=== PATIENT | female | born 1980 | race American Indian/Alaskan Native ===

== ENCOUNTER 2020-12-23 21:42 | Outpatient (CLI) | payer MEDICAID ==
[2020-12-23 22:06] VITALS: BP 134/88
[2020-12-23] MEDS ORDERED: LACTATED RINGERS 1,000 ML IV ONE (22:29)
== END 2020-12-23 23:29 | disposition home or self-care (01) ==
LOC: TRG 21:42 → APU 21:54 → TRG 23:29
PROVIDERS: ATTEND Obstetrics & Gynecology
DX: O62.9 Abnormality of forces of labor, unspecified (principal); O24.419 Gestational diabetes mellitus in pregnancy, unspecified control; O09.523 Supervision of elderly multigravida, third trimester; Z3A.37 37 weeks gestation of pregnancy
CPT/HCPCS: 59025; 82962; 96360; J7120

== ENCOUNTER 2020-12-30 17:12 | Inpatient (IN) | payer MEDICAID ==
[2020-12-30 19:38] LABS: Hematocrit 35.9 % (30.3-42.9); Hemoglobin 12.2 gm/dl (10.1-14.3); Mean Corpuscular HGB Conc 34 % (30-34); Mean Corpuscular Volume 80 fl (79-97); Platelet Count 245 K/mm3 (140-440); Red Blood Count 4.48 M/mm3 (3.65-5.03)
[2020-12-30 20:07] LABS: Alanine Aminotransferase 15 units/L (7-56); Albumin 3.5 g/dL (3.9-5); Blood Urea Nitrogen 5 mg/dL (7-17); Calcium 9.4 mg/dL (8.4-10.2); Hemolysis Index 8
[2020-12-30 20:19] LABS: BUN/Creatinine Ratio 10
[2020-12-30] MEDS ORDERED: LACTATED RINGERS 1,000 ML IV SCH ×2 (21:00→23:15)
[2020-12-30] MEDS ORDERED: OXYTOCIN DRIP 30 UNITS/500 ML BAG IV SCH ×2 (21:00→23:45)
[2020-12-30] MEDS ORDERED: TERBUTALINE 1 MG/1 ML INJ SUB-Q PRN (23:03)
[2020-12-30] MEDS ORDERED: OXYTOCIN 10 UNIT/1 ML INJ IM PRN (23:03)
[2020-12-30] MEDS ORDERED: CARBOPROST TROMETHAMINE 250 MCG/1 ML INJ IM PRN (23:03)
[2020-12-30] MEDS ORDERED: LOPERAMIDE 2 MG CAP PO PRN (23:03)
[2020-12-30] MEDS ORDERED: miSOPROStol 200 MCG TAB PR PRN (23:03)
[2020-12-30] MEDS ORDERED: BUTORPHANOL 2 MG/1 ML INJ IV PRN (23:03)
[2020-12-30] MEDS ORDERED: MINERAL OIL 30 ML ORAL LIQD PO PRN (23:03)
[2020-12-30] MEDS ORDERED: ePHEDrine SULFATE 50 MG/1 ML INJ IV PRN (23:03)
[2020-12-30] MEDS ORDERED: METHYLERGONOVINE MALEATE 0.2 MG/ML VIAL IM PRN (23:03)
--- NOTE | 2020-12-30 23:40 | History and Physical Report ---
History of Present Illness Date of examination: 12/30/20 Date of admission: 12/30/2020 Chief complaint: I'm here for my induction History of present illness: Patient is a 40-year-old 8 para 4-0-3-3 who presents for induction of labor secondary to advanced maternal age, poorly controlled gestational diabetes and polyhydramnios. Her EDC is 01/07/2021 which makes her 38 weeks and 6 days today. Her course was complicated by late presentation to care, advanced maternal age, new diagnosis of HSV, and gestational diabetes. She is GBS negative. Her first delivery was via section in 1997 for a stillborn. She has had 3 successful VBACs since then. Past History Past Medical History: diabetes Past Surgical History: section [employer] History: herpes Family/Genetic History: none Social history: - Obstetrical History Expected Date of Delivery: 01/07/21 Actual Gestation: 38 Week(s) 6 Day(s) : 8 Para: 4 Number of Living Children: 3 Medications and Allergies Allergies Allergy/AdvReac Type Severity Reaction Status Date / Time No Known Allergies Allergy Verified 12/23/20 22:31 Home Medications Medication Instructions Recorded Confirmed Last Taken Type One Daily Tablet 1 tab PO DAILY 12/30/20 12/30/20 12/30/20 10:00 History metFORMIN 500 mg PO DAILY 12/30/20 12/30/20 12/29/20 21:00 History Active Meds: Active Medications Butorphanol Tartrate (Butorphanol 2 Mg/1 Ml Inj) 2 mg IV Q2H PRN PRN Reason: Pain , Severe (7-10) Carboprost Tromethamine (Carboprost Tromethamine 250 Mcg/1 Ml Inj) 250 mcg IM ONCE PRN PRN Reason: Uterine Bleeding Ephedrine Sulfate (Ephedrine Sulfate 50 Mg/1 Ml Inj) 10 mg IV Q2M PRN PRN Reason: Hypotension Oxytocin/Sodium Chloride (Pitocin/Ns 30 Unit/500ml) 30 units in 500 mls @ 2 mls/hr IV TITR JOSE FRANCISCO; Protocol Last Admin: 12/30/20 23:15 Dose: 2 ml/hr, 2 mls/hr Documented by: Lactated Ringer's (Lactated Ringers) 1,000 mls @ 125 mls/hr IV DIRECT JOSE FRANCISCO Last Admin: 12/30/20 23:15 Dose: 125 mls/hr Documented by: Oxytocin/Sodium Chloride (Pitocin/Ns 30 Unit/500ml) 30 units in 500 mls @ 2 mls/hr IV TITR JOSE FRANCISCO; Protocol Lactated Ringer's (Lactated Ringers) 1,000 mls @ 125 mls/hr IV DIRECT JOSE FRANCISCO Lidocaine (Lidocaine (2%) 20 Mg/1 Ml Vial 20 Ml Mdv) 20 ml INFILTRATI ONCE ONE Stop: 12/30/20 23:04 Loperamide HCl (Loperamide 2 Mg Cap) 2 mg PO ONCE PRN PRN Reason: give with Hemabate Methylergonovine Maleate (Methylergonovine Maleate 0.2 Mg/Ml Vial) 0.2 mg IM ONCE PRN PRN Reason: Uterine Bleeding Mineral Oil (Mineral Oil 30 Ml Oral Liqd) 30 ml PO QHS PRN PRN Reason: Constipation Misoprostol (Misoprostol 200 Mcg Tab) 800 mcg AK ONCE PRN PRN Reason: Uterine Bleeding Oxytocin (Oxytocin 10 Unit/1 Ml Inj) 10 unit IM ONCE PRN PRN Reason: Uterine Bleeding Terbutaline Sulfate (Terbutaline 1 Mg/1 Ml Inj) 0.25 mg SUB-Q ONCE PRN PRN Reason: Hyperstimulation/Hypertonicity Review of Systems All systems: negative Eyes: deferred Gastrointestinal: abdominal pain Genitourinary: pelvic pain - Vital Signs Vital signs: Vital Signs Pulse BP 91 H 111/63 12/30/20 18:10 12/30/20 18:10 Temp Pulse Resp BP Pulse Ox 98.9 F 68 16 125/72 99 12/30/20 19:26 12/30/20 23:27 12/30/20 19:26 12/30/20 23:27 12/30/20 23:26 - Physical Exam Breasts: Positive: deferred Cardiovascular: Regular rate, Normal S1, Normal S2 Lungs: Positive: Clear to auscultation, Normal air movement Abdomen: Positive: normal appearance, soft, normal bowel sounds. Negative: distention, tenderness Genitourinary (Female): Positive: normal external genitalia, normal perenium Vulva: both: normal Vagina: Positive: normal moisture. Negative: discharge Cervix: Negative: lesion, discharge Uterus: Positive: normal size, normal contour Adnexa: both: normal Anus/Rectum: Positive: normal perianal skin, heme negative. Negative: rectal mass, hemorrhoids Extremities: Deep Tendon Reflex Grade: Normal +2 - Obstetrical FHR: auscultation normal Cervical Dilatation: 4.5 Cervical Effacement Percentage: 80 station: -2 Uterine Contraction Frequency (min): 5 Uterine Contraction Pattern: Irregular Uterine Tone Measurement Phase: Contraction Uterine Contraction Intensity: Moderate Results Result Diagrams: 12/30/20 19:00 12/30/20 19:00 Abnormal lab results 12/30/20 12/30/20 Range/Units 19:00 19:00 MCH 27 L (28-32) pg Sodium 134 L (137-145) mmol/L Carbon Dioxide 20 L (22-30) mmol/L BUN 5 L (7-17) mg/dL Creatinine 0.5 L (0.6-1.2) mg/dL Glucose 136 H (65-100) mg/dL Alkaline Phosphatase 165 H (35-129) units/L Albumin 3.5 L (3.9-5) g/dL All other labs normal. Assessment and Plan IUP at 38 and 6 for induction of labor per [facility] who recommends delivery by 39 weeks. In addition, patient has not been checking her sugars regularly secondary to inability to procure the proper testing supplies. We will proceed with augmentation of labor and anticipate .
[2020-12-30] MEDS ORDERED: LIDOCAINE (2%) 20 MG/1 ML VIAL 20 ML MDV INFILTRATI ONE (23:53)
[2020-12-31 00:46] LABS: Hemoglobin 11.7 gm/dl (10.1-14.3); Mean Corpuscular HGB Conc 34 % (30-34); Mean Corpuscular Volume 81 fl (79-97); Platelet Count 237 K/mm3 (140-440); Red Blood Count 4.32 M/mm3 (3.65-5.03); Red Cell Distribution Width 14.9 % (13.2-15.2)
--- NOTE | 2020-12-31 01:25 | Procedure Note ---
OB Delivery Note - Delivery Date of Delivery: 12/31/20 Surgeon: CAROLINE CARLSON Estimated blood loss: 200cc - Vaginal Delivery presentation: vertex Delivery position: OA Intrapartum events: none Delivery augmentation: rupture of membranes, pitocin Delivery monitor: external FHT, external uterine Route of delivery: Delivery placenta: spontaneous Delivery cord: nuchal cord, 3 umbilical vessels Episiotomy: none Delivery laceration: none Anesthesia: none Delivery comments: Viable male delivered over intact perineum without episiotomy or lace ration. Weight 8 pounds 11 ounces, Apgars 8 and 9. Loose nuchal cord easily reduced on perineum. Infant had spontaneous cry and was placed on maternal abdomen. Cord clamped and cut when done pulsating. Delivered spontaneously and intact with three-vessel cord. No lacerations. Excellent hemostasis. Patient tolerated procedure well. - Infant A at 1 minute: 8 at 5 minutes: 9 Infant Gender: Male
[2020-12-31] MEDS ORDERED: ONDANSETRON 4 MG/2 ML INJ IV PRN (04:21)
[2020-12-31] MEDS ORDERED: MAGNESIUM HYDROXIDE (MOM) ORAL LIQD UDC PO PRN (04:21)
[2020-12-31] MEDS ORDERED: HYDROcodone/ACETAMINOPHEN 5-325 MG TAB PO PRN (04:21)
[2020-12-31] MEDS ORDERED: diphenhydrAMINE 25 MG CAP PO PRN (04:21)
[2020-12-31] MEDS ORDERED: LANOLIN/ZINC/DIMETHICONE (LANSINOH) 7 GM TP PRN (04:21)
[2020-12-31] MEDS ORDERED: PROMETHAZINE 25 MG RECT SUPP PR PRN (04:21)
[2020-12-31] MEDS ORDERED: PROMETHAZINE 25 MG TAB PO PRN (04:21)
[2020-12-31] MEDS ORDERED: WITCH HAZEL/ GLYCERIN PAD TP PRN (04:21)
[2020-12-31] MEDS: IBUPROFEN 600 MG TAB PO SCH ×3 (06:00→17:46)
[2020-12-31] MEDS: PRENATAL VIT27-FE FUMARATE-FOLIC ACID VIT TAB PO SCH (09:13)
[2020-12-31] MEDS: DOCUSATE SODIUM 100 MG CAP PO SCH ×2 (09:13→22:28)
[2020-12-31 13:42] LABS: Hematocrit 33.6 % (30.3-42.9); Hemoglobin 11.1 gm/dl (10.1-14.3)
--- NOTE | 2020-12-31 22:55 | Progress Note ---
Assessment and Plan Pt is PPD 1 s/p . Doing well. Plan for discharge in the am. Subjective - Subjective Date of service: 12/31/20 Interval history: Patient is a 40-year-old 8 para 4-0-3-3 who presents for induction of labor secondary to advanced maternal age, poorly controlled gestational diabetes and polyhydramnios. Her EDC is 01/07/2021 which makes her 38 weeks and 6 days today. Her course was complicated by late presentation to [facility], advan tere maternal age, new diagnosis of HSV, and gestational diabetes. She is GBS negative. Her first delivery was via section in 1997 for a stillborn. She has had 3 successful VBACs since then. Patient reports: appetite normal, voiding normally, pain well controlled, ambulating normally : doing well Objective - Vital Signs Latest vital signs: Vital Signs Temp Pulse Resp BP BP Pulse Ox Pulse Ox 12/31/20 17:30 98.2 F 82 18 117/53 99 12/31/20 12:21 97.6 F 88 18 108/67 95 12/31/20 08:43 97.9 F 93 H 18 112/79 95 12/31/20 08:00 100 12/31/20 06:58 18 12/31/20 06:00 18 12/31/20 04:45 98.8 F 12/31/20 04:24 100 12/31/20 04:15 74 18 116/70 100 12/31/20 02:41 85 98 12/31/20 02:36 70 98 12/31/20 02:33 73 118/58 12/31/20 02:31 67 97 12/31/20 02:26 68 98 12/31/20 02:21 66 98 12/31/20 02:18 74 139/77 12/31/20 02:16 86 100 12/31/20 02:11 67 98 12/31/20 02:06 81 98 12/31/20 02:03 68 131/81 12/31/20 02:01 77 98 12/31/20 01:56 75 99 12/31/20 01:51 63 97 12/31/20 01:48 71 128/83 12/31/20 01:46 88 98 12/31/20 01:41 83 97 12/31/20 01:36 84 98 12/31/20 01:33 71 122/67 12/31/20 01:31 80 99 12/31/20 01:26 81 98 12/31/20 01:21 75 98 12/31/20 01:18 86 128/69 12/31/20 01:16 86 99 12/31/20 01:11 85 98 12/31/20 01:06 93 H 97 12/31/20 01:01 76 98 12/31/20 00:56 95 H 99 12/31/20 00:51 105 H 100 12/31/20 00:48 101 H 90 12/31/20 00:46 76 100 12/31/20 00:41 94 H 98 12/31/20 00:36 109 H 98 12/31/20 00:31 95 H 99 12/31/20 00:26 100 H 100 12/31/20 00:21 79 98 12/31/20 00:16 89 99 12/31/20 00:11 96 H 99 12/31/20 00:06 85 100 12/31/20 00:01 83 98 12/30/20 23:56 91 H 98 12/30/20 23:55 98.2 F 16 12/30/20 23:51 75 100 12/30/20 23:46 84 98 12/30/20 23:41 90 99 12/30/20 23:36 62 99 12/30/20 23:31 88 97 12/30/20 23:27 68 125/72 12/30/20 23:26 63 99 12/30/20 23:21 74 98 12/30/20 23:16 87 114/72 99 12/30/20 23:11 91 H 99 12/30/20 23:06 72 99 12/30/20 23:01 81 99 12/30/20 22:56 102 H 100 Intake and Output 12/31/20 12/31/20 12/31/20 06:59 14:59 22:59 Intake Total 122.3 240 Output Total 900 700 500 Balance -017.7 700 260 Intake: IV 2.3 PITOCin/NS 30 UNIT/500ML 2.3 30 units In 500 ml @ 2 mls/hr IV TITR JOSE FRANCISCO Rx#: [id number] Oral 120 240 Output: Urine 900 700 500 Void 900 700 500 Other: Total, Intake Amount 120 240 Total, Output Amount 900 700 500 # Voids Void 1 Estimated Blood Loss 200 - Exam Breasts: Present: deferred Cardiovascular: Present: Regular rate, Normal S1, Normal S2 Lungs: Present: Clear to auscultation, Normal air movement Abdomen: Present: normal appearance, soft, normal bowel sounds Uterus: Present: normal, firm Extremities: Present: normal - Labs Labs: Abnormal lab results 12/31/20 Range/Units 00:22 MCH 27 L (28-32) pg
--- NOTE | 2020-12-31 22:58 | Discharge Summary ---
Providers - Providers Date of Admission: 12/31/20 01:22 Date of discharge: 01/01/21 Attending physician: CAROLINE CARLSON Primary care physician: CAROLINE CARLSON Hospitalization Reason for admission: induction of labor Delivery: Episiotomy: none Laceration: none Discharge diagnosis: baby: male Hospital course: unremarkable Condition at discharge: Good Disposition: DC-01 TO HOME OR SELFCARE Plan - Discharge Medications Prescriptions: Ibuprofen [Motrin] 800 mg PO Q8HR PRN #40 tablet PRN Reason: Pain, Mild (1-3) - Provider Discharge Summary Activity: routine, no sex for 6 weeks, no heavy lifting 4 weeks, no strenuous exercise Diet: routine Instructions: routine Additional instructions: [] Smoking cessation referral if applicable(refer to patient education folder for contact #) [] Refer to [facility] Booklet Call your doctor immediately for: * Fever > 100.5 * Heavy vaginal bleeding ( >1 pad per hour) * Severe persistent headache * Shortness of breath * Reddened, hot, painful area to leg or breast * Drainage or odor from incision. * Keep incision clean and dry at all times and follow doctor's instructions regarding bathing/showering - Follow up plan Follow up: CAROLINE CARLSON MD [Primary Care Provider] - 6 Weeks
[2021-01-01] MEDS: IBUPROFEN 600 MG TAB PO SCH ×2 (00:09→06:07)
[2021-01-01] MEDS ORDERED: TETANUS,DIPH,PERTUSS(ACELL) VACCINE 0.5 ML SYRINGE IM ONE (06:00)
[2021-01-01] MEDS: DOCUSATE SODIUM 100 MG CAP PO SCH (09:26)
[2021-01-01] MEDS: PRENATAL VIT27-FE FUMARATE-FOLIC ACID VIT TAB PO SCH (09:26)
[2021-01-01 12:20] VITALS: BP 120/68
== END 2021-01-01 12:15 | disposition home or self-care (01) | DRG 774 ==
LOC: TRG 17:12 → APU 17:14 → LD 18:26 → TRG 12-31 01:21 → LD 12-31 01:22 → OB 12-31 03:56
PROVIDERS: ADMIT Obstetrics & Gynecology; ATTEND Obstetrics & Gynecology
PROC: 10E0XZZ Delivery of Products of Conception, External Approach (ICD-10-PCS; principal; 2020-12-31)
PROC: 3E0234Z Introduction of Serum, Toxoid and Vaccine into Muscle, Percutaneous Approach (ICD-10-PCS; 2021-01-01)
DX: O98.52 Other viral diseases complicating childbirth (principal); O69.81X0 Labor and delivery complicated by cord around neck, without compression, not applicable or unspecified; Z3A.38 38 weeks gestation of pregnancy; Z37.0 Single live birth; Z23 Encounter for immunization; B00.9 Herpesviral infection, unspecified; Z79.84 Long term (current) use of oral hypoglycemic drugs; Z20.822 Contact with and (suspected) exposure to COVID-19; O24.429 Gestational diabetes mellitus in childbirth, unspecified control; O40.3XX0 Polyhydramnios, third trimester, not applicable or unspecified
CPT/HCPCS: 36415; 59025; 80053; 85014; 85018; 85027; 86592; 86850; 86900; 86901; 90715; 96360; G0378; J2590; J7120; U0003